=== PATIENT | female | born 1990 | race Caucasian/White ===

== ENCOUNTER 2017-06-25 | Emergency (ER) | payer SELFPAY ==
[~2017-06-25] VITALS: Ht 152.4 cm; Wt 50.0 kg
[2017-06-25 00:04] VITALS: BP 99/66; PULSE 59; RESP 10; TEMP 98.1; O2SAT 99
[2017-06-25] MEDS ORDERED: SODIUM CHLOR 0.9% 1000 ML INJ 1,000 ML IV SCH (00:08)
[2017-06-25] MEDS ORDERED: SODIUM CHLORIDE 0.9% FLUSH 5 ML FLUSH IV FLUSH PRN (00:15)
[2017-06-25] MEDS ORDERED: FLUMAZENIL 0.5 MG/5 ML VIAL IV PUSH ONE (00:15)
[2017-06-25] MEDS ORDERED: NALOXONE HCL 2 MG/2 ML VIAL IV PUSH ONE (00:15)
--- NOTE | 2017-06-25 00:18 | PD ---
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 NO FURTHER HISTORY CAN BE OBTAINED...PER EMS WORKPLACE IS [place] AND APPARENTLY THIS WAS HER FIRST SHIFT [facility] Past Medical History ?: Unknown Social History Alcohol Use: Yes Tobacco Use: Yes Allergies-Medications (Allergen,Severity, Reaction): Coded Allergies: No Known Allergies (Unverified , 06/25/17) Reported Meds & Prescriptions Reported Meds & Active Scripts Active No Active Prescriptions or Reported Medications Review of Systems ROS Limitations: Intoxication, Altered Mental Status Except as stated in HPI: all other systems reviewed are Neg Physical Exam Exam Limitations: Intoxication, Altered Mental Status Narrative GENERAL: SKIN: Warm and dry. HEAD: Atraumatic. Normocephalic. EYES: Pupils equal and round. No scleral icterus. No injection or drainage. ENT: No nasal bleeding or discharge. Mucous membranes pink and moist. NECK: Trachea midline. No JVD. CARDIOVASCULAR: Regular rate and rhythm. RESPIRATORY: No accessory muscle use. Clear to auscultation. Breath sounds equal bilaterally. GASTROINTESTINAL: Abdomen soft, non-tender, nondistended. MUSCULOSKELETAL: Extremities without clubbing, cyanosis, or edema. No obvious deformities. NEUROLOGICAL: SOMNOLENT, GCS 8....(NARCAN 2MG GIVEN) AFTER WHICH GCS IMPROVED TO 14/15 PSYCHIATRIC: Appropriate mood and affect; insight and judgment normal. Data Data Last Documented VS Vital Signs Date Time Temp Pulse Resp B/P (MAP) Pulse Ox O2 Delivery O2 Flow Rate FiO2 06/25/17 14:43 84 18 99/53 (68) 99 06/25/17 11:52 Room Air Orders Orders Electrocardiogram (06/25/17 00:08) Complete Blood Count With Diff (06/25/17 00:08) Comprehensive Metabolic Panel (06/25/17 00:08) Creatine Kinase (Cpk) (06/25/17 00:08) Prothrombin Time / Inr (Pt) (06/25/17 00:08) Act Partial Throm Time (Ptt) (06/25/17 00:08) Troponin I (06/25/17 00:08) Thyroid Stimulating Hormone (06/25/17 00:08) Urinalysis - C+S If Indicated (06/25/17 00:08) Chest, Single Ap (06/25/17 00:08) Ct Brain W/O Iv Contrast(Rout) (06/25/17 00:08) Blood Glucose (06/25/17 00:08) Ecg Monitoring (06/25/17 00:08) Iv Access Insert/Monitor (06/25/17 00:08) Oximetry (06/25/17 00:08) Flumazenil Inj (Romazicon Inj) (06/25/17:15) Naloxone Inj (Narcan Inj) (06/25/17:15) Sodium Chloride 0.9% Flush (Ns Flush) (06/25/17 00:15) Sodium Chlor 0.9% 1000 Ml Inj (Ns 1000 M (06/25/17 00:08) Drug Screen, Random Urine (06/25/17 00:08) Alcohol (Ethanol) (06/25/17 00:08) Tylenol (Acetaminophen) (06/25/17 00:08) Salicylates (Aspirin) (06/25/17 00:08) Ed Urine Pregnancytest Poc (06/25/17 00:08) Labs Laboratory Tests Test 06/25/17 00:15 06/25/17 02:30 White Blood Count 5.8 TH/MM3 Red Blood Count 4.41 MIL/MM3 Hemoglobin 12.7 GM/DL Hematocrit 37.4 % Mean Corpuscular Volume 84.8 FL Mean Corpuscular Hemoglobin 28.8 PG Mean Corpuscular Hemoglobin Concent 34.0 % Red Cell Distribution Width 13.0 % Platelet Count 267 TH/MM3 Mean Platelet Volume 7.8 FL Neutrophils (%) (Auto) 45.8 % Lymphocytes (%) (Auto) 39.8 % Monocytes (%) (Auto) 9.6 % Eosinophils (%) (Auto) 3.5 % Basophils (%) (Auto) 1.3 % Neutrophils # (Auto) 2.6 TH/MM3 Lymphocytes # (Auto) 2.3 TH/MM3 Monocytes # (Auto) 0.6 TH/MM3 Eosinophils # (Auto) 0.2 TH/MM3 Basophils # (Auto) 0.1 TH/MM3 CBC Comment DIFF FINAL Differential Comment Prothrombin Time 11.5 SEC Prothromb Time International Ratio 1.0 RATIO Activated Partial Thromboplast Time 26.4 SEC Blood Urea Nitrogen 16 MG/DL Creatinine 0.65 MG/DL Random Glucose 91 MG/DL Total Protein 6.8 GM/DL Albumin 3.9 GM/DL Calcium Level 8.8 MG/DL Alkaline Phosphatase 72 U/L Aspartate Amino Transf (AST/SGOT) 21 U/L Alanine Aminotransferase (ALT/SGPT) 41 U/L Total Bilirubin 1.3 MG/DL Sodium Level 138 MEQ/L Potassium Level 3.6 MEQ/L Chloride Level 104 MEQ/L Carbon Dioxide Level 25.5 MEQ/L Anion Gap 9 MEQ/L Estimat Glomerular Filtration Rate 109 ML/MIN Total Creatine Kinase 49 U/L Troponin I LESS THAN 0.02 NG/ML Thyroid Stimulating Hormone 3rd Gen 0.613 uIU/ML Salicylates Level LESS THAN 1.7 MG/DL Acetaminophen Level LESS THAN 2.0 MCG/ML Ethyl Alcohol Level LESS THAN 3 MG/DL Urine Color YELLOW Urine Turbidity CLEAR Urine pH 6.0 Urine Specific [place] 1.008 Urine Protein NEG mg/dL Urine Glucose (UA) NEG mg/dL Urine Ketones NEG mg/dL Urine Occult Blood MOD Urine Nitrite NEG Urine Bilirubin NEG Urine Urobilinogen LESS THAN 2.0 MG/DL Urine Leukocyte Esterase TRACE Urine RBC 18 /hpf Urine WBC 2 /hpf Urine Mucus FEW /lpf Microscopic Urinalysis Comment CATH-CULT NOT IND Urine Opiates Screen NEG Urine Barbiturates Screen NEG Urine Amphetamines Screen NEG Urine Benzodiazepines Screen POS Urine Cocaine Screen POS Urine Cannabinoids Screen NEG [facility] Medical Decision Making Medical Screen Exam Complete: Yes Emergency Medical Condition: Yes Medical Record Reviewed: Yes Interpretation(s) NSR 64, NORMAL INTERVALS, NO STEMI PATTERN Differential Diagnosis OVERDOSE OPIATE V BENZO V OTHER COINGESTIONS V ICH V ELECTROLYTE ABNL Narrative Course CT NEG FOR ICH, CXR NEG FOR PNA/PTX. PATIENT CBC/CMP WNL, UA NEG FOR UTI. HOWEVER TOX SCREEN POS FOR BZD AND COCAINE. OPIATE ON BOARD IS PRESUMED DUE TO THE RESPONSE OF NARCAN ....SIGNED OUT PENDING SOBRIETY Critical Care Narrative CRITICAL CARE NOTE: With evaluation of the patient, labs, EKG, receipt of radiologic studies, administration of medications, reevaluation the patient and discussion of the patient with the admitting physicians, the total critical care time was [60] minutes. Time to perform other separately billable procedures was not included in the critical care time. Diagnosis Primary Impression: RECREATIONAL POLYSUBSTANCE USE Scripts No Active Prescriptions or Reported Meds Disposition: 01 DISCHARGE HOME Condition: Stable Pal Angulo MD Jun 25, 2017 00:18
[2017-06-25 00:38] LABS: AUTOMATED NEUTROPHIL # 2.6 TH/MM3 (1.8-7.7); BASOPHIL # 0.1 TH/MM3 (0-0.2); BASOPHIL % 1.3 % (0.0-2.0); EOSINOPHIL # 0.2 TH/MM3 (0-0.4); EOSINOPHIL % 3.5 % (0.0-4.0); HEMATOCRIT 37.4 % (35.0-46.0); HEMO FLAGS DIFF FINAL; LYMPH % 39.8 % (9.0-44.0); LYMPHOCYTE # 2.3 TH/MM3 (1.0-4.8); MEAN CELL VOLUME 84.8 FL (80.0-100.0); MEAN CORPUSCULAR HEMOGLOBIN 28.8 PG (27.0-34.0); MONO % 9.6 % (0.0-8.0); NEUT % 45.8 % (16.0-70.0); PLATELET COUNT 267 TH/MM3 (150-450); RED BLOOD COUNT 4.41 MIL/MM3 (4.00-5.30); WHITE BLOOD COUNT 5.8 TH/MM3 (4.0-11.0)
--- NOTE | 2017-06-25 00:42 | RADRPT ---
EXAM DATE/TIME: 06/25/2017 00:28 [facility] COMPARISON: No previous studies available for comparison. INDICATIONS : Shortness of breath. MEDICAL HISTORY : None. SURGICAL HISTORY : None. ENCOUNTER: Initial ACUITY: 1 day PAIN SCORE: 0/10 LOCATION: Bilateral chest FINDINGS: A single view of the chest demonstrates the lungs to be symmetrically aerated without evidence of mas s, infiltrate or effusion. The cardiomediastinal contours are unremarkable. Osseous structures are intact. CONCLUSION: 1. No acute cardiopulmonary disease. Satinder Lambert MD on June 25, 2017 at 0:40 Board Certified Radiologist. This report was verified electronically.
[2017-06-25 00:48] LABS: APTT (PATIENT) 26.4 SEC (24.3-30.1); PROTHROMBIN TIME - PATIENT 11.5 SEC (9.8-11.6)
[2017-06-25 00:52] LABS: ACETAMINOPHEN LESS THAN 2.0 MCG/ML (10.0-30.0); ALT (GPT) 41 U/L (10-53); ANION GAP 9 MEQ/L (5-15); AST (GOT) 21 U/L (15-37); BICARBONATE 25.5 MEQ/L (21.0-32.0); BLOOD UREA NITROGEN 16 MG/DL (7-18); CHLORIDE 104 MEQ/L (98-107); GLOMERULAR FILTRATION RATE 109 ML/MIN (>89); POTASSIUM 3.6 MEQ/L (3.5-5.1); SODIUM (NA) 138 MEQ/L (136-145)
--- NOTE | 2017-06-25 01:02 | RADRPT ---
EXAM DATE/TIME: 06/25/2017 00:51 [facility] COMPARISON: No previous studies available for comparison. INDICATIONS : Altered mental status. Found unresponsive, possible overdose. RADIATION DOSE: 31.51 CTDIvol (mGy) MEDICAL HISTORY : None SURGICAL HISTORY : None. ENCOUNTER: Initial ACUITY: 1 day PAIN SCALE: 0/10 LOCATION: cranial TECHNIQUE: Multiple contiguous axial images were obtained of the head. Using automated exposure control and adj ustment of the mA and/or kV according to patient size, radiation dose was kept as low as reasonably a chievable to obtain optimal diagnostic quality images. DICOM format image data is available electro nically for review and comparison. FINDINGS: CEREBRUM: The ventricles are normal for age. No evidence of midline shift, mass lesion, hemorrhage or acute in farction. No extra-axial fluid collections are seen. POSTERIOR FOSSA: The cerebellum and brainstem are intact. The 4th ventricle is midline. The cerebellopontine angle i s unremarkable. EXTRACRANIAL: The visualized portion of the orbits is intact. SKULL: The calvaria is intact. No evidence of skull fracture. CONCLUSION: 1. No evidence of acute intracranial pathology. No masses are identified. Satinder Lambert MD on June 25, 2017 at 1:00 Board Certified Radiologist. This report was verified electronically.
[2017-06-25 01:05] LABS: ALKALINE PHOSPHATASE 72 U/L (45-117); TOTAL BILIRUBIN ADULT 1.3 MG/DL (0.2-1.0)
[2017-06-25 01:31] LABS: CREATINE KINASE 49 U/L (26-192)
[2017-06-25 01:32] LABS: ALCOHOL LESS THAN 3 MG/DL (0-5)
[2017-06-25 02:43] LABS: BLOOD, URINE MOD (NEG); COMMENT (UR) CATH-CULT NOT IND; CULTURE IF INDICATED CATH CULTURE NOT IND; GLUCOSE,URINE NEG (NEG); KETONE, URINE NEG (NEG); MUCUS URINE FEW /lpf (OCC); NITRITE,URINE NEG (NEG); URINE COLOR YELLOW (YELLW/STRAW)
[2017-06-25 03:58] VITALS: BP 88/54; PULSE 71; RESP 12; TEMP 98; O2SAT 97
[2017-06-25 06:44] VITALS: BP 92/50; PULSE 52; RESP 14; O2SAT 100
[2017-06-25 09:23] VITALS: BP 99/68; PULSE 92; RESP 16; O2SAT 100
[2017-06-25 11:52] VITALS: BP 169/83; PULSE 86; RESP 18; O2SAT 100
[2017-06-25 14:43] VITALS: BP 99/53
--- NOTE | 2017-06-26 07:38 | EKG ---
Date Performed: 06/25/2017 Time Performed: 00:06:38 PTAGE: 27 years EKG: Sinus rhythm NORMAL ECG NO PREVIOUS TRACING DOCTOR: Elmer Bennett Interpretating Date/Time 06/26/2017 07:37:30
== END 2017-06-25 14:44 | disposition home or self-care (01) ==
LOC: NEPE
DX: F19.90 Other psychoactive substance use, unspecified, uncomplicated (principal); R40.2431 Glasgow coma scale score 3-8, in the field [EMT or ambulance]; Z72.0 Tobacco use
CPT/HCPCS: 70450; 71010; 80053; 80307; 81001; 82550; 84443; 84484; 84703; 85025; 85610; 85730; 93005; 96361; 96374; 99291; J2310; J7030